=== PATIENT | female | born 1975 | race Caucasian/White ===

== ENCOUNTER 2020-04-21 14:02 | Emergency (ER) | payer OTHER ==
--- NOTE | 2020-04-21 16:15 | EDM.PDOC ---
Scribed by Felicita Asher 04/21/20 [id number] for Piedad Rivas NP ED HPI GENERAL MEDICAL PROBLEM - General Chief Complaint: General Stated Complaint: DIZZY SPELLS Time Seen by Provider: 04/21/20 15:30 Source of Information: Reports: Patient, RN, RN Notes Reviewed History Limitations: Reports: No Limitations - History of Present Illness INITIAL COMMENTS - FREE TEXT/NARRATIVE: Presents with intermittent dizziness since 6 pm last night. Mild nausea when really dizzy. Has improved some. Noted worse when going from a lying to and sitting position or moving fast. No vomiting. No abdominal pain or headache. No cough or SOB. No loss of taste or smell. Onset: Today Duration: Constant Quality: Reports: Ache Severity: Moderate Improves with: Reports: None Worsens with: Reports: None Associated Symptoms: Reports: No Other Symptoms - Related Data Allergies Allergy/AdvReac Type Severity Reaction Status Date / Time cortisone Allergy Unknown Cannot Verified 04/21/20 14:24 Remember Home Meds: Home Meds Fexofenadine [Carmen] 1 tab PO DAILY 04/21/20 [History] Past Medical History Endocrine/Metabolic History: Reports: Hyperthyroidism - Past Surgical History Endocrine Surgical History: Reports: Thyroidectomy Other Endocrine Surgeries/Procedures: pt states 1/2 thyroid removed 20 years ago Social & Family History - Family History Family Medical History: Noncontributory - Tobacco Use Smoking Status *Q: Never Smoker Second Hand Smoke Exposure: No - Caffeine Use Caffeine Use: Reports: Coffee - Recreational Drug Use Recreational Drug Use: No ED ROS GENERAL - Review of Systems Review Of Systems: Comprehensive ROS is negative, except as noted in HPI. ED EXAM, GENERAL - Physical Exam Exam: See Below Exam Limited By: No Limitations General Appearance: Alert, WD/WN, No Apparent Distress Eye Exam: Bilateral Eye: PERRL Head: Other (mild nystagmus and mild vertigo with head tilt up only. ) Neck: Normal Inspection, Supple, Non-Tender, Full Range of Motion Respiratory/Chest: No Respiratory Distress, Lungs Clear, Normal Breath Sounds, No Accessory Muscle Use, Chest Non-Tender Cardiovascular: Normal Peripheral Pulses, Regular Rate, Rhythm, No Edema, No Gallop, No JVD, No Murmur, No Rub GI/Abdominal: Normal Bowel Sounds, Soft, Non-Tender, No Organomegaly, No Dist ention, No Abnormal Bruit, No Mass Back Exam: Normal Inspection, Full Range of Motion, NT Extremities: Normal Inspection, Normal Range of Motion, Non-Tender, Normal Capillary Refill, No Pedal Edema Neurological: Alert, Oriented, CN II-XII Intact, Normal Cognition, Normal Gait, Normal Reflexes, No Motor/Sensory Deficits Psychiatric: Normal Affect, Normal Mood Skin Exam: Warm, Dry, Intact, Normal Color, No Rash Course - Vital Signs Text/Narrative:: Presents with intermittent dizziness since 6 pm last night. Mild nausea when really dizzy. Has improved some. Noted worse when going from a lying to and sit ting position or moving fast. No vomiting. No abdominal pain or headache. No cough or SOB. No loss of taste or smell. Patient had a positive Halpike maneuver; only with the upward gaze; mild dizzy and mild nystagmus CBC, CMP normal. Her TSH is slight elevated as to be expected; but minimally. COVID is negative. Last Recorded V/S: Last Vital Signs Temp 98.4 F 04/21/20 14:25 Pulse 73 04/21/20 14:25 Resp 18 04/21/20 14:25 BP 130/73 04/21/20 14:25 Pulse Ox 97 04/21/20 14:25 - Orders/Labs/Meds Labs: Laboratory Tests 04/21/20 04/21/20 04/21/20 Range/Units 14:24 14:24 14:40 WBC 8.5 (5.0-10.0) 10^3/uL RBC 5.00 (4.2-5.4) 10^6/uL Hgb 16.3 H (12.0-16.0) g/dL Hct 46.6 (37.0-47.0) % MCV 93.2 (80-100) fL MCH 32.6 (27.0-34.0) pg MCHC 35.0 (33.0-35.0) g/dL Plt Count 300 (150-450) 10^3/uL Sodium 140 (136-145) mmol/L Potassium 4.0 (3.5-5.1) mmol/L Chloride 102 (98-107) mmol/L Carbon Dioxide 30 (21-32) mmol/L Anion Gap 12.0 (7-13) mEq/L BUN 12 (7-18) mg/dL Creatinine 1.19 H (0.55-1.02) mg/dL Est Cr Clr Drug Dosing 63.88 mL/min Estimated GFR (MDRD) 49 BUN/Creatinine Ratio 10.1 (No establ ref range) Glucose 89 (74-99) mg/dL Calcium 8.7 (8.5-10.1) mg/dL Total Bilirubin 0.3 (0.2-1.0) mg/dL AST 20 (15-37) U/L ALT 38 (14-59) U/L Alkaline Phosphatase 49 (46-116) U/L Total Protein 7.6 (6.4-8.2) g/dL Albumin 4.2 (3.4-5.0) g/dL Globulin 3.4 Albumin/Globulin Ratio 1.2 TSH, Ultra Sensitive 4.43 H (0.36-3.74) uIU/mL COVID-19 (PRISCILA) Negative (NEGATIVE) Departure - Departure Time of Disposition: 16:14 Disposition: Home, Self-Care 01 Condition: Good Clinical Impression: Benign positional vertigo Qualifiers: Laterality: unspecified laterality Qualified Code(s): H81.10 - Benign paroxysmal vertigo, unspecified ear - Discharge Information Instructions: Benign Positional Vertigo Forms: ED Department Discharge Additional Instructions: Labs normal and COVID is negative. Do the Halpike maneuvers I have taught you 3- 4 x per day. See your PCP next week if not resolve. Drink plenty of fluids. Sepsis Event Note (ED) - Evaluation Sepsis Screening Result: No Definite Risk - Focused Exam Vital Signs: Vital Signs Temp Pulse Resp BP Pulse Ox 04/21/20 14:25 98.4 F 73 18 130/73 97 I have read and agree with the documentation that has been completed regarding this visit. By signing this record, I attest that the documentation was completed in my physical presence and is an accurate record of the encounter.
== END 2020-04-21 16:14 | disposition home or self-care (01) ==
LOC: DL.ED 14:02
DX: H81.10 Benign paroxysmal vertigo, unspecified ear (principal); H55.00 Unspecified nystagmus; Z20.828 Contact with and (suspected) exposure to other viral communicable diseases; Z91.09 Other allergy status, other than to drugs and biological substances
CPT/HCPCS: 36415; 80053; 84443; 85027; 99283; 99284; U0002